=== PATIENT | male | born 1990 | race Caucasian/White ===

== ENCOUNTER 2018-05-21 18:22 | Emergency (ER) | payer BC ==
[~2018-05-21] VITALS: Ht 175.3 cm; Wt 71.0 kg
[2018-05-21 18:26] VITALS: BP 171/108
[2018-05-21] MEDS ORDERED: hyDROXYzine 50 mg/ml injection ***IM only IM ONE (18:40)
[2018-05-21] MEDS ORDERED: HYDR50CA PO (18:42)
== END 2018-05-21 19:13 | disposition home or self-care (01) ==
LOC: ER 18:23
DX: F41.9 Anxiety disorder, unspecified (principal); I10 Essential (primary) hypertension; Z88.8 Allergy status to other drugs, medicaments and biological substances
CPT/HCPCS: 93005; 96372; 99284; J3410